=== PATIENT | female | born 1995 | race American Indian/Alaskan Native ===

== ENCOUNTER 2017-02-14 14:39 | Inpatient (IN) | payer MEDICAID ==
[2017-02-14] MEDS ORDERED: ROCEPHIN/NS 1 GM/50 ML 1 GM/50 ML BAG IV ONE (14:57)
[2017-02-14] MEDS ORDERED: LACTATED RINGERS 1,000 ML IV ONE (14:58)
[2017-02-14] MEDS ORDERED: PHENERGAN PR ONE (14:59)
[2017-02-14 15:21] LABS: Basophils % (Auto) 0.1 % (0.0-1.8); Hematocrit 34.3 % (30.3-42.9); Hemoglobin 11.3 gm/dl (10.1-14.3); Mean Corpuscular HGB Conc 33 % (30-34); Mean Corpuscular Hemoglobin 29 pg (28-32); Mean Corpuscular Volume 88 fl (79-97); Platelet Count 202 K/mm3 (140-440); Red Blood Count 3.92 M/mm3 (3.65-5.03); Red Cell Distribution Width 13.3 % (13.2-15.2); White Blood Count 14.8 K/mm3 (4.5-11.0)
[2017-02-14 15:33] LABS: Alanine Aminotransferase 44 units/L (7-56); Albumin 3.4 g/dL (3.9-5); Alkaline Phosphatase 73 units/L (35-129); Anion Gap 19 mmol/L; BUN/Creatinine Ratio 16.66; Blood Urea Nitrogen 10 mg/dL (7-17); Calcium 8.8 mg/dL (8.4-10.2); Carbon Dioxide 25 mmol/L (22-30); Chloride 93.3 mmol/L (98-107); Glucose 85 mg/dL (65-100); Potassium 3.4 mmol/L (3.6-5.0); Sodium 134 mmol/L (137-145); Total Protein 6.9 g/dL (6.3-8.2)
[2017-02-14] MEDS ORDERED: TYLENOL PR ONE (16:48)
[2017-02-14] MEDS ORDERED: D5W 1,000 ML IV ONE (17:18)
[2017-02-14] MEDS ORDERED: TYLENOL PO ONE (17:28)
[2017-02-14] MEDS ORDERED: DEEP SEA NS PRN (17:31)
[2017-02-14] MEDS ORDERED: SUDAFED PO PRN (17:31)
[2017-02-14] MEDS ORDERED: TYLENOL PO PRN (17:31)
[2017-02-14] MEDS ORDERED: AMBIEN PO PRN (17:31)
[2017-02-14] MEDS ORDERED: COLACE PO PRN (17:31)
[2017-02-14] MEDS ORDERED: BENADRYL PO PRN (17:31)
[2017-02-14] MEDS ORDERED: ROBITUSSIN DM PO PRN (17:31)
--- NOTE | 2017-02-14 17:59 | History and Physical Report ---
History of Present Illness History of present illness: EDC Confirmation: 06/21/2017 Gestational Age: 11 4/7 weeks Past History Term Births: 0 Premature Births: 0 Living Children: 0 Para: 0 Aborta: 0 Past Medical History: Reviewed history from 01/03/2016 and no changes required: Negative Past Medical History Past Surgical History: Reviewed history from 01/03/2016 and no changes required: Tonsillectomy Past Medical History Abnormal PAP: negative CHRIS Exposure: negative Infertility: negative Uterine Anomaly: negative Uterine Surgery (not C/S): negative Other Gynecologic Problems: negative Infection History Hx of STD: none HIV Risk Eval: low risk Hepatitis B Risk Eval: low risk Personal hx. of genital herpes: no Partner hx. of genital herpes: no Rash, Viral, or Febrile illness since last LMP? no Varicella/Chicken Pox Status: Previous Disease Genetic History Congenital Heart Defect: Mom: no Dad: no Dilcia Disease: Mom: no Dad: no Thalassemia Mom: no Dad: no Neural Tube Defect Mom: no Dad: no Down's Syndrome Mom: no Dad: no Ibrahima-Sachs Mom: no Dad: no Sickle Cell Disease/Trait Mom: no Dad: no Hemophilia Mom: no Dad: no Muscular Dystrophy Mom: no Dad: no Cystic Fibrosis Mom: no Dad: no Skillman Chorea Mom: no Dad: no Mental Retardation Mom: no Dad: no Fragile X Mom: no Dad: no Other Genetic/Chromosomal Disorder Mom: no Dad: no Child w/other defect Mom: no Dad: no Enviromental Exposures Xray Exposure: no Medication, drug, or alcohol use since LMP: no Chemical/Other Exposure: no Exposure to Cat Liter: no Hx of Parvovirus (Fifth Disease): no Occupational Exposure to Children: none FALSECurrent Allergies (reviewed today): * SEAFOOD (Critical) * PEANUT BUTTER (Critical) * SEASONAL (Critical) Laboratory Results Routine Urinalysis Leukocytes: negative Nitrite: negative Urobilinogen: negative Protein: 1+ Blood: negative Ketone: negative Bilirubin: negative Glucose: Negative Urine HCG: positive Review of Systems General Denies fever, chills, sweats, anorexia, fatigue, weakness, malaise, weight loss and sleep disorder. Denies nausea, vomiting, headache, swelling of legs, abdominal pain, vaginal discharge, vaginal bleeding and contractions. Denies vaginal discharge, incontinence, dysuria, hematuria, urinary frequency, amenorrhea, menorrhagia, abnormal vaginal bleeding, pelvic pain, genital sores, decreased libido, painful periods, painful sex, urinary urgency, hot flashes, vaginal dryness, vaginal itching and vaginal odor. CV Denies chest pains, palpitations, syncope, dyspnea on exertion, orthopnea, PND and peripheral edema. Resp Denies cough, dyspnea at rest, excessive sputum, hemoptysis, wheezing and pleurisy. GI Denies nausea, vomiting, diarrhea, constipation, change in bowel habits, abdominal pain, melena, hematochezia, jaundice, gas/bloating, indigestion/ heartburn, dysphagia and odynophagia. Endo Denies cold intolerance, heat intolerance, polydipsia, polyphagia, polyuria and unusual weight change. Breast Denies left breast lump, right breast lump, nipple discharge, bloody discharge from nipple, breast pain, abnormal mammogram and breast enlargement. MS Denies back pain, joint pain, joint swelling, muscle cramps, muscle weakness, stiffness, arthritis, sciatica, restless legs, leg pain at night and leg pain with exertion. Derm Denies rash, itching, dryness and suspicious lesions. Neuro Denies paralysis, paresthesias, headache, seizures, tremors, vertigo, transient blindness, frequent falls, frequent headaches and difficulty walking. Psych Denies depression, anxiety, irritability and mood swings. Eyes Denies blurring, diplopia, irritation, discharge, vision loss, eye pain and photophobia. ENT Denies earache, ear discharge, tinnitus, decreased hearing, nasal congestion, nosebleeds, sore throat and hoarseness. Allergy Denies urticaria, allergic rash, hay fever and recurrent infections. Heme Denies abnormal bruising, bleeding and enlarged lymph nodes. 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 Ht: sono FHT: 157 Past History - Obstetrical History Expected Date of Delivery: 06/21/17 Actual Gestation: 21 Week(s) 6 Day(s) : 1 Para: 0 Number of Living Children: 0 Medications and Allergies Allergies Allergy/AdvReac Type Severity Reaction Status Date / Time grass pollen Allergy Itching Verified 02/14/17 14:53 pollen extracts Allergy Itching Verified 02/14/17 14:53 shellfish derived Allergy Itching Verified 02/14/17 15:19 weed pollen Allergy Itching Verified 02/14/17 14:53 Home Medications Medication Instructions Recorded Confirmed Last Taken Type Promethazine [Phenergan TAB] 12.5 mg PO Q6HR 02/14/17 02/14/17 02/07/17 21:00 History 1 Promethazine [Phenergan] 25 mg CO QHS 02/14/17 02/14/17 02/07/17 21:00 History 1 Active Meds: Active Medications Acetaminophen (Tylenol) 650 mg PO Q4H PRN PRN Reason: Pain MILD(1-3)/Fever >100.5/GONZALEZ Diphenhydramine HCl (Benadryl) 25 mg PO Q6H PRN PRN Reason: Itching Docusate Sodium (Colace) 100 mg PO Q12H PRN PRN Reason: Constipation Guaifenesin (Robitussin Dm) 10 ml PO Q6H PRN PRN Reason: Cough Dextrose (D5w) 1,000 mls @ 250 mls/hr IV ONCE ONE Stop: 02/14/17 21:17 Folic Acid 1 mg/ Multivitamins /Minerals 10 ml/ Thiamine HCl 100 mg/ Sodium Chloride 1,000 mls @ 125 mls/hr IV .BY DURATION WANG Sodium Chloride (Nacl 0.9% 1000 Ml) 1,000 mls @ 125 mls/hr IV .BY DURATION WANG Dextrose/Lactated Ringer's (D5lr) 1,000 mls @ 500 mls/hr IV DIRECT WANG Stop: 02/15/17 19:59 Multivitamins/Iron/Calcium ( Vitamin) 1 each PO QDAY WANG Nitrofurantoin Macrocrystals (Macrobid) 100 mg PO Q12HR WANG Promethazine HCl (Phenergan) 25 mg CO Q6H WANG Pseudoephedrine HCl (Sudafed) 30 mg PO Q4H PRN PRN Reason: Nasal Congestion Sodium Chloride (Deep Sea) 2 spray NS Q4H PRN PRN Reason: Congestion Zolpidem Tartrate (Ambien) 10 mg PO ONCE PRN PRN Reason: Sleep - Vital Signs Vital signs: Vital Signs Pulse Pulse Ox 105 H 97 02/14/17 15:11 02/14/17 15:11 Temp Pulse Resp BP Pulse Ox 101.9 F H 100 H 107/66 99 02/14/17 15:12 02/14/17 15:27 02/14/17 15:12 02/14/17 15:27 - Physical Exam Breasts: Positive: deferred Cardiovascular: Regular rate, Normal S1, Normal S2 Lungs: Positive: Normal air movement Abdomen: Positive: normal appearance, soft, normal bowel sounds. Negative: distention, tenderness Genitourinary (Female): Positive: normal external genitalia, normal perenium Vulva: both: normal Vagina: Positive: normal moisture. Negative: discharge Cervix: Negative: lesion, discharge Uterus: Positive: normal size, normal contour Adnexa: both: normal Anus/Rectum: Positive: normal perianal skin, heme negative. Negative: rectal mass, hemorrhoids Extremities: Positive: normal Deep Tendon Reflex Grade: Normal +2 - Obstetrical FHR: auscultation normal Uterine Contraction Pattern: Irregular (irritability) Uterine Contraction Intensity: Mild Results Result Diagrams: 02/14/17 14:38 02/14/17 15:01 Abnormal lab results 02/14/17 02/14/17 Range/Units 14:38 15:01 WBC 14.8 H (4.5-11.0) K/mm3 Lymph % (Auto) 5.3 L (13.4-35.0) % [place] % (Auto) 11.7 H (0.0-7.3) % Lymph # 0.8 L (1.2-5.4) K/mm3 [place] # 1.7 H (0.0-0.8) K/mm3 Seg Neutrophils % 82.9 H (40.0-70.0) % Seg Neutrophils # 12.3 H (1.8-7.7) K/mm3 Sodium 134 L (137-145) mmol/L Potassium 3.4 L (3.6-5.0) mmol/L Chloride 93.3 L (98-107) mmol/L Creatinine 0.6 L (0.7-1.2) mg/dL Albumin 3.4 L (3.9-5) g/dL All other labs normal. Laboratory Data-Patient Name: MATIAS HERRERA Test Date Result Blood Type 01/01/2017 A Rh 01/01/2017 Positive Antibody Screen negative Rubella 01/01/2017 immune Serology (RPR) 01/01/2017 NR HBsAg 01/01/2017 Negative Hemoglobin 01/01/2017 11.8 Hematocrit 01/01/2017 37.1 Platelets 01/01/2017 254 [id number] Chlamydia DNA 12/04/2016 Negative GC DNA/Culture 12/04/2016 Urine Culture 01/01/2017 Final report Group B Strep cult PAP HIV 01/01/2017 AFP/Quad Screen 01/01/2017 Glucola Test 3hr GTT (Fasting) 1 hr 2 hr 3 hr [facility]-Patient Name:MATIAS HERRERA Test Date Result Varicella Ab Sickle Cell 01/01/2017 Negative PPD Fibronectin Cystic Fibrosis Parvovirus TSH Free T4 Hepatitis C ALT AST Uric Acid Creatinine 24 hr Urine Protein GUNNAR Assessment and Plan 21yo @ 21 weeks with N&V, cystitis, malaise. Pt admitted for observation, IVFs, dietary consult, antibiotics for UTI. UA and culture sent Orders in EMR. Dr.Meziere frye.
[2017-02-14] MEDS ORDERED: 1: FOLVITE 1 MG, INFUVITE 10 ML, VITAMIN B-1 100 MG in NACL 0.9% 1000 ML 988.8 ML 2: NA IV SCH (18:00)
[2017-02-14] MEDS ORDERED: D5LR 1,000 ML IV SCH (18:00)
[2017-02-14 19:44] LABS: Amylase 53 units/L (27-131); Lipase 34 units/L (13-60)
[2017-02-14] MEDS ORDERED: ZOFRAN IV PRN (20:21)
[2017-02-14 21:24] LABS: Bilirubin,Urine NEG (Negative); Blood,Urine SM (Negative); Ketones,Urine 80 mg/dL (Negative); Leukocyte Esterase,Urine LG (Negative); Mucus,Urine 2+ /HPF; Nitrite,Urine NEG (Negative); Renal Epithelial Cells,Urine 1 /LPF; WBC,Urine > 182.0 /HPF (0.0-6.0)
[2017-02-14] MEDS: REGLAN IV PRN (21:45)
[2017-02-14] MEDS: MACROBID PO SCH (23:35)
[2017-02-15] MEDS: PHENERGAN PR SCH ×3 (00:16→12:08)
--- NOTE | 2017-02-15 08:36 | Admit Criteria Form ---
Admission Criteria Documentation: OBSTETRIC AND GYNECOLOGIC DISEASE GRG Clinical Indications for Admission to Inpatient Care (Place 'X' for any and all applicable criteria): Hospital admission is needed for appropriate care of the patient because of 1 or more of the following (1)(2)(3): [ ]I. Hemodynamic instability, as indicated by 1 or more of the following (1)( 2)(3)(4)(5): [ ]a) Vital signs or other findings not as expected for chronic patient condition or baseline [ ]b) Instability indicated by 1 or more of the following: [ ]i) Hypotension [ ]ii) Symptomatic tachycardia unresponsive to treatment (eg, analgesia, fluids, sedation as indicated) [ ]iii) Inadequate perfusion indicated by 1 or more of the following: [ ]A. Lactic acidosis (greater than 2 mmol/ L) [ ]B. New abnormal capillary refill ( greater than 3 seconds) [ ]C. Reduced urine output [ ]D. New altered mental status [ ]iv) Orthostatic vital sign changes unresponsive to treatment (eg, fluids) [ ]v) Multiple IV fluid boluses required to maintain adequate blood pressure or perfusion [ ]vi) IV inotropic or vasopressor medication required to maintain adequate blood pressure or perfusion [ ]II. Obstetric infection requiring hospitalization indicated by 1 or more of the following(13)(14): [ ]a) Chorioamnionitis [ ]b) Endometritis (except mild endometritis) [ ]c) Pelvic abscess [ ]d) Peritonitis [ ]e) Septic pelvic thrombophlebitis [ ]III. Amniotic fluid or pulmonary embolism(4)(5)(6) [ ]IV. Suspected peritonitis or ectopic requiring monitoring beyond scope of 24 hours or observation care(7)(8) [ ]V. compromise requiring hospitalization indicated by ALL of the following(9)(10): [ ]a) compromise indicated by 1 or more of the following(11): [ ]i) Abnormal heart rate monitoring [ ]ii) Abnormal contraction stress test [ ]iii) Abnormal biophysical profile [ ]iv) Abnormal Doppler flow in vessels (ie, Doppler velocimetry) (12) [ ]b) Persistence of compromise indicators during evaluation and observation monitoring [ ]. Ovarian hyperstimulation syndrome requiring hospitalization[A] indicated by ALL of the following(15): [ ]a) Recent ovarian stimulation with gonadotropins, or evidence on ultrasound of spontaneous emergence of large number of ovarian follicles [ ]b) Evidence of severe ovarian hyperstimulation syndrome indicated by 1 or more of the following: [ ]i) Abdominal pain unresponsive to oral therapy [ ]ii) Acute respiratory distress syndrome [ ]iii) Electrolyte imbalance ( eg, hyponatremia, hyperkalemia) [ ]iv) Elevated liver enzymes [ ]v) Evidence of thromboembolism [ ]vi) Hemoconcentration (hematocrit greater than 45 % (0.45)) [ ]vii) Inability to maintain oral intake adequate to prevent hemoconcentration [ ]viii) Marked hypotension from baseline (eg, SBP 20 mmHg below patients usual pressure) [ ]ix) Oliguria or anuria [ ]x) Ovarian torsion [ ]xi) Pleural or pericardial effusion on x-ray or echocardiogram [ ]xii) Rapid increase in serum creatinine to greater than 1.2 mg/dL (106 micromoles/L) or creatinine clearance less than 50 mL/min/1.73m2 (0.84 mL/ sec/1.73m2) [ ]xiii) Ruptured ovarian cyst with hemorrhage [ ]xiv) Severe abdominal pain or peritoneal signs [ ]xv) Tense ascites that cannot be managed with paracentesis in outpatient setting [ ]VII.Pelvic infection requiring hospitalization indicated by 1 or more of the following (16): [ ]a) Outpatient treatment has failed or is not appropriate (eg, inpatient monitoring required) [ ]b) Pelvic abscess [ ]c) Surgical emergency cannot be excluded (eg, rigid abdomen) [ ]d) Vomiting precluding outpatient and observation care management VIII. loss complications requiring inpatient medical treatment indicated by 1 or more of the following (4)(7)(9): [ ]a) Fever [ ]b) Peritonitis [ ]c) Sepsis [ ]d) Severe abdominal pain [ ]IX. or patient requiring monitoring for severe heart failure, pulmonary disease, or other comorbid condition (eg, peripartum cardiomyopathy) (4)(17) [ ]X. patient with rupture of membranes requiring hospitalization indicated by ANY ONE of the following: [ ]a) Chorioamnionitis, cloudy amniotic fluid, or other evidence of infection [ ]b) compromise or other need for monitoring (11) [ ]c) Gestation longer than 23 weeks and ANY ONE of the following: [ ]i) Abnormal (noncephalic) presentation [ ]ii) Inadequate home environment (eg, home too far from hospital, unable to rapidly return to hospital) [ ]d) Temperature greater than 100.4 degrees F (38 degrees C)( oral) [ ]e) Threatened labor requiring monitoring beyond scope (eg, over 24 hours) of observation Care [ ] XI. complications, including severe lacerations, infections, or retained placenta (19) [ ] XII.Uterine bleeding with high-risk features indicated by ANY ONE of the following (4): [ ]a) Active major hemorrhage (eg, hemorrhage) [ ]b) Coagulopathy with active bleeding [ ]c) Gestational trophoblastic disease (eg, molar ) (20 ) [ ]d) (longer than 23 weeks) and ANY ONE of the following: [ ]i) Pain [ ]ii) Placental abruption, known or suspected [ ]iii) Placenta accrete, known or suspected(21) [ ]iv) Placenta previa, known or suspected [ ]v) Vasa previa [ ]e) Severe anemia [X ]XIII. Obstetric or Gynecologic Disease, condition or symptom for which ANY ONE of the following: [X ]a) Emergency and observation care have failed or are not considered appropriate ( Also use General Criteria: Observation Care Criteria as appropriate) [ ]b) Presence of a General Admission Criteria or Pediatric General Admission Criteria The original [facility] [employer] content created by [facility] has been revised. The portions of the content which have been revised are identified through the use of italic text or in bold, and [facility] has neither reviewed nor approved the modified material.All other unmodified content is copyright [facility]. Please see references footnoted in the original [facility] edition 2016 Admission Criteria Met: Yes
[2017-02-15] MEDS: REGLAN IV PRN (08:57)
--- NOTE | 2017-02-15 09:54 | Progress Note ---
Assessment and Plan INT IV Continue clera liquids ? D/c this pm - Patient Problems (1) 21 weeks gestation of Current Visit: Yes Status: Acute (2) Cystitis during in second trimester, antepartum Current Visit: Yes Status: Acute (3) Nausea and vomiting in prior to 22 weeks gestation Current Visit: Yes Status: Acute Subjective - Subjective Date of service: 02/15/17 Patient reports: movement normal, no new complaints, no vaginal bleeding, no contractions Objective - Vital Signs Vital Signs: Vital Signs - 12hr 02/15/17 02/15/17 02/15/17 05:00 05:41 08:21 Temperature 98.9 F Pulse Rate 109 H 104 H Pulse Rate [ 109 H From Monitor] Respiratory 22 Rate Blood Pressure 107/62 93/51 Blood Pressure 107/62 [Left Arm] 02/15/17 08:23 Temperature 99.6 F Pulse Rate Pulse Rate [ 104 H From Monitor] Respiratory 18 Rate Blood Pressure Blood Pressure 93/51 [Left Arm] - Exam Breasts: deferred Lungs: Clear to auscultation, Normal air movement Abdomen: Present: soft. Absent: distention, tenderness Uterus: Present: normal. Absent: tenderness FHR: auscultation normal Extremities: normal - Labs Labs: Abnormal Labs 02/14/17 02/14/17 02/14/17 14:38 15:01 21:05 WBC 14.8 H Lymph % (Auto) 5.3 L [place] % (Auto) 11.7 H Lymph # 0.8 L [place] # 1.7 H Seg Neutrophils % 82.9 H Seg Neutrophils # 12.3 H Sodium 134 L Potassium 3.4 L Chloride 93.3 L Creatinine 0.6 L Albumin 3.4 L Urine WBC (Auto) > 182.0 H Laboratory Results - last 24 hr 02/14/17 02/14/17 02/14/17 14:38 15:01 15:01 WBC 14.8 H RBC 3.92 Hgb 11.3 Hct 34.3 MCV 88 MCH 29 MCHC 33 RDW 13.3 Plt Count 202 Lymph % (Auto) 5.3 L [place] % (Auto) 11.7 H Eos % (Auto) 0.0 Baso % (Auto) 0.1 Lymph # 0.8 L [place] # 1.7 H Eos # 0.0 Baso # 0.0 Seg Neutrophils % 82.9 H Seg Neutrophils # 12.3 H Sodium 134 L Potassium 3.4 L Chloride 93.3 L Carbon Dioxide 25 Anion Gap 19 BUN 10 Creatinine 0.6 L Estimated GFR > 60 BUN/Creatinine Ratio 16.66 Glucose 85 Calcium 8.8 Total Bilirubin 0.70 AST 26 ALT 44 Alkaline Phosphatase 73 Total Protein 6.9 Albumin 3.4 L Albumin/Globulin Ratio 1.0 Amylase 53 Lipase 34 Urine Color Urine Turbidity Urine pH Ur Specific [place] Urine Protein Urine Glucose (UA) Urine Ketones Urine Blood Urine Nitrite Urine Bilirubin Urine Urobilinogen Ur Leukocyte Esterase Urine WBC (Auto) Urine RBC (Auto) U Epithel Cells (Auto) Ur Renal Epithelial Cell Urine Mucus 02/14/17 21:05 WBC RBC Hgb Hct MCV MCH MCHC RDW Plt Count Lymph % (Auto) [place] % (Auto) Eos % (Auto) Baso % (Auto) Lymph # Stewart # Eos # Baso # Seg Neutrophils % Seg Neutrophils # Sodium Potassium Chloride Carbon Dioxide Anion Gap BUN Creatinine Estimated GFR BUN/Creatinine Ratio Glucose Calcium Total Bilirubin AST ALT Alkaline Phosphatase Total Protein Albumin Albumin/Globulin Ratio Amylase Lipase Urine Color Dina Urine Turbidity Cloudy Urine pH 5.0 Ur Specific [place] 1.025 Urine Protein 100 mg/dl Urine Glucose (UA) Neg Urine Ketones 80 Urine Blood Sm Urine Nitrite Neg Urine Bilirubin Neg Urine Urobilinogen 4.0 Ur Leukocyte Esterase Lg Urine WBC (Auto) > 182.0 H Urine RBC (Auto) 9.0 U Epithel Cells (Auto) 6.0 Ur Renal Epithelial Cell 1 Urine Mucus 2+
[2017-02-15] MEDS ORDERED: PRENATAL VITAMIN PO SCH (10:00)
[2017-02-15] MEDS: MACROBID PO SCH (10:15)
[2017-02-15] MEDS ORDERED: REGLAN PO SCH (10:30)
--- NOTE | 2017-02-15 15:48 | Discharge Summary ---
Providers - Providers Date of Admission: 02/15/17 11:53 Date of discharge: 02/15/17 Attending physician: BERENICE ALVAREZ 02/14/17 17:31 Consult to Dietitian/Nutrition [CONS] Routine Physician Instructions: Reason For Exam: Reason for Consult: Poor oral intake Primary care physician: BERENICE ALVAREZ Hospitalization Reason for admission: observation (febrile, UTI) Hospital course: observation, antibiotics and hydration Condition at discharge: Good Disposition: DISCHARGED TO HOME OR SELFCARE - Discharge Diagnoses (1) 21 weeks gestation of Status: Acute (2) Cystitis during in second trimester, antepartum Status: Acute (3) Nausea and vomiting in prior to 22 weeks gestation Status: Acute Plan - Discharge Medications Prescriptions: Promethazine [Phenergan SUPPOS] 25 mg [place] QHS PRN #15 supp.rect PRN Reason: nausea Metoclopramide [Reglan] 10 mg PO TID #30 tab Nitrofurantoin [place]/M-Cryst [Macrobid CAP] 100 mg PO Q12HR #14 capsule - Provider Discharge Summary Activity: routine Diet: other ([place], BRAT diet) Instructions: routine Additional instructions: [] Smoking cessation referral if applicable(refer to patient education folder for contact #) [] Refer to [facility]'s [facility] Booklet Call your doctor immediately for: * Fever > 100.5 * Heavy vaginal bleeding ( >1 pad per hour) * Severe persistent headache * Shortness of breath * Reddened, hot, painful area to leg or breast * Keep incision clean and dry at all times and follow doctor's instructions regarding bathing/showering - Follow up plan Follow up: BERENICE ALVAREZ MD [Primary Care Provider] - 03/05/17 9:00 am (Please keep next scheduled appointment in office. call for any questions or concerns. Continue taking all of your antibiocs.)
[2017-02-15 17:14] VITALS: BP 97/52
== END 2017-02-15 17:25 | disposition home or self-care (01) | DRG 781 ==
LOC: TRG 14:39 → LD 17:31 → OBSVTOIN 02-15 11:53
PROVIDERS: ADMIT Obstetrics & Gynecology; ATTEND Obstetrics & Gynecology
DX: O23.12 Infections of bladder in pregnancy, second trimester (principal); Z3A.21 21 weeks gestation of pregnancy
CPT/HCPCS: 36415; 80053; 81001; 82150; 83690; 85025; 87086; 96360; 96365; 96366; G0378; J0696; J2405; J2765; J3411; J7030; J7070; J7120; J7121

== ENCOUNTER 2017-11-04 08:38 | Emergency (ER) | payer MEDICAID ==
[2017-11-04 10:25] LABS: Bilirubin,Urine NEG (Negative); Blood,Urine NEG (Negative); Color,Urine Yellow (Yellow); Mucus,Urine FEW /HPF; Nitrite,Urine NEG (Negative); Protein,Urine <15 mg/dL mg/dL (Negative); Urobilinogen,Urine < 2.0 mg/dL (<2.0)
--- NOTE | 2017-11-04 12:30 | Emergency Department Report ---
HPI - General Chief Complaint: Urogenital-Female Time Seen by Provider: 11/04/17 11:25 - HPI HPI: Patient is a 22-year-old female who presents to ED complaining of lower pelvic cramping capacity. Patient states she took a test at home that and was positive. Patient had made some mild nausea but no vomiting Patient states that last superior to sometime in September she can't really recall. Patient denies fevers or chills, vaginal bleeding or spotting. She states she is not sure if she is and wanted to come verify . ED Past Medical Hx - Past Medical History Previous Medical History?: Yes Hx Hypertension: No Hx Congestive Heart Failure: No Hx Diabetes: No Hx Deep Vein Thrombosis: No Hx Renal Disease: No Hx Sickle Cell Disease: No Hx Seizures: No Hx Asthma: No Hx COPD: No Hx HIV: No - Surgical History Past Surgical History?: Yes Additional Surgical History: x 1 - Social History Smoking Status: Never Smoker Substance Use Type: Alcohol, Marijuana - Medications Home Medications: Home Medications Medication Instructions Recorded Confirmed Last Taken Type Promethazine [Phenergan TAB] 12.5 mg PO Q6HR 02/14/17 07/02/17 02/07/17 21:00 History 1 Promethazine [Phenergan] 25 mg [place] QHS 02/14/17 07/02/17 02/07/17 21:00 History 1 Metoclopramide [Reglan] 10 mg PO TID #30 tab 02/15/17 07/02/17 Unknown Rx Promethazine [Phenergan SUPPOS] 25 mg [place] QHS PRN #15 supp.rect 02/15/1707/01/17 10:00 Rx Ferrous Sulfate 325 mg PO DAILY 07/02/17 07/02/17 06/22/17 15:00 History Ibuprofen [Motrin 800 MG tab] 800 mg PO TID PRN #30 tablet 07/02/17 Unknown Rx Pnv No.95/Ferrous Fum/Folic AC 1 each PO DAILY 07/02/17 07/02/17 Unknown History [ Vitamin Tablet] oxyCODONE /ACETAMINOPHEN [Percocet 1 - 2 tab PO Q4HR PRN #30 tablet 07/02/17 Unknown Rx 5/325 mg] Nitrofurantoin Jefferson/M-Cryst 100 mg PO Q12HR #14 capsule 11/04/17 Unknown Rx [Macrobid CAP] ED Review of Systems ROS: Stated complaint: PELVIC PAIN Other details as noted in HPI Constitutional: denies: chills, fever Eyes: denies: eye pain, eye discharge, vision change ENT: denies: ear pain, throat pain Respiratory: denies: cough, shortness of breath, wheezing Cardiovascular: denies: chest pain, palpitations Endocrine: no symptoms reported Gastrointestinal: denies: abdominal pain, nausea, diarrhea Genitourinary: denies: urgency, dysuria, discharge Musculoskeletal: denies: back pain, joint swelling, arthralgia Skin: denies: rash, lesions Neurological: denies: headache, weakness, paresthesias Psychiatric: denies: anxiety, depression Hematological/Lymphatic: denies: easy bleeding, easy bruising Physical Exam - Physical Exam Vital Signs: Vital Signs 11/04/17 08:54 Temperature 99.1 F Pulse Rate 78 Respiratory 18 Rate Blood Pressure 121/62 O2 Sat by Pulse 100 Oximetry Physical Exam: GENERAL: Alert and oriented x3, no apparent distress, Normal Gait, atraumatic. HEAD: Head is normocephalic and a-traumatic. LUNGS: Symetrical with respiration, No wheezing, no rales or crackles, CTAB. HEART: S1, S2 present, regular rate and rhythm without murmur, no rubs, no gallops. Non tender to palpation ABDOMEN: No organomegaly was noted,Positive bowel sounds, soft, and non- distended. . Nontender to palpation on all Quadrants, NO CVA tenderness. BACK: Full range of motion, no spinal tenderness, nontender to palpation. SKIN: Warm and dry, No lesions, No ulceration or induration present. ED Course Vital Signs 11/04/17 08:54 Temperature 99.1 F Pulse Rate 78 Respiratory 18 Rate Blood Pressure 121/62 O2 Sat by Pulse 100 Oximetry ED Medical Decision Making - Medical Decision Making 22-year-old female present with a cystitis and concerns ED course: Urinalysis, Quant test ordered. Urinalysis positive for slight trace leuks. test is negative. I discussed with patient that her hormone is negative. I discussed the patient to follow-up with the PHYSICIAN SPECIALIST doctor for further evaluation. Discussed the patient that sometimes menstrual Cycles can be a little bit late. I discussed the patient and I will treat her for mild cystitis otherwise follow -up with primary care physician and or obgyn Vital signs are normal. Patient is in no acute distress. I discussed the patient to abstain from sex for the next 7-10 days. Critical care attestation.: If time is entered above; I have spent that time in minutes in the direct care of this critically ill patient, excluding procedure time. ED Disposition Clinical Impression: UTI (urinary tract infection) Qualifiers: Urinary tract infection type: acute cystitis Hematuria presence: without hematuria Qualified Code(s): N30.00 - Acute cystitis without hematuria Disposition: TO HOME OR SELFCARE Is pt being admited?: No Does the pt Need Aspirin: No Condition: Stable Instructions: Urinary Tract Infection in Women (ED), Dysuria (ED) Additional Instructions: Make sure to follow up with the primary care physician as discussed. Take all your medications as you've been prescribed. If you have any worsening symptoms or develop new symptoms please return to ED immediately. Prescriptions: Nitrofurantoin [place]/M-Cryst [Macrobid CAP] 100 mg PO Q12HR #14 capsule Referrals: CARIN PINA MD [Primary Care Provider] - 3-5 Days TITO LUIS MD [Referring] - 3-5 Days Forms: Accompanied Note, Work/School Release Form(ED) Time of Disposition: 12:34
[2017-11-04 12:51] VITALS: BP 117/74
== END 2017-11-04 13:05 | disposition home or self-care (01) ==
LOC: ED 08:38
DX: N30.00 Acute cystitis without hematuria (principal); F12.10 Cannabis abuse, uncomplicated
CPT/HCPCS: 36415; 81001; 84702

== ENCOUNTER 2022-03-27 10:44 | Inpatient (IN) | payer MEDICAID ==
[2022-03-27] MEDS ORDERED: D5W/LACTATED RINGERS 1,000 ML IV SCH (11:00)
--- NOTE | 2022-03-27 11:00 | History and Physical Report ---
History of Present Illness Date of examination: 03/27/22 Chief complaint: excessive n/v, 25lb wt loss, 10wks History of present illness: Prepregnancy weight 137 Weight today in office 112 Ketones (80) +++ EDC Calculations by LMP: 10/18/2022 Past History : 2 Term Births: 1 Premature Births: 0 Living Children: 1 Para: 1 Mult. Births: 0 Prev : 1 Aborta: 0 Elect. Ab: 0 Spont. Ab: 0 Ectopics: 0 # 1 Delivery date: 07/02/2017 Weeks Gestation: 41 Delivery type: Anesthesia type: epidural Delivery location: [facility] Sex: female weight: 6.88 Past Medical History: Reviewed history from 01/03/2016 and no changes required: Negative Past Medical History Past Surgical History: Reviewed history from 07/02/2017 and no changes required: Tonsillectomy (07/02/2017) Risk Factors: Smoked Tobacco Use: Never smoker Smokeless Tobacco Use: Never HIV High Risk Behavior: no Caffeine Use: 0 drinks per day Exercise: no Seatbelt Use: 100 % Alcohol Use: no Drug Use: no Past Medical History 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 of genital herpes: no Partner hx. of genital herpes: no Rash, Viral, or Febrile illness since last LMP? no Varicella/Chicken Pox Status: Immunized Genetic History Congenital Heart Defect: Mom: no Dad: no Dilcia Disease: Mom: no Dad: no Thalassemia Mom: no Dad: no Neural Tube Defect Mom: no Dad: no Down's Syndrome Mom: no Dad: no Ibrahima-Sachs Mom: no Dad: no Sickle Cell Disease/Trait Mom: no Dad: no Hemophilia Mom: no Dad: no Muscular Dystrophy Mom: no Dad: no Cystic Fibrosis Mom: no Dad: no [place] Chorea Mom: no Dad: no Mental Retardation Mom: no Dad: no Fragile X Mom: no Dad: no Other Genetic/Chromosomal Disorder Mom: no Dad: no Child w/other defect Mom: no Dad: no Enviromental Exposures Xray Exposure: no Medication, drug, or alcohol use since LMP: no Chemical/Other Exposure: no Exposure to Cat Liter: no Hx of Parvovirus (Fifth Disease): no Occupational Exposure to Children: none Active Medications (reviewed today): ondansetron HCl 4 mg tablet (ondansetron hcl) Current Allergies (reviewed today): * SEAFOOD (Critical) * PEANUT BUTTER (Critical) * SEASONAL (Critical) Past History Past Medical History: other (see HPI) Past Surgical History: other (see HPI) 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) Family/Genetic History: other (see HPI) Social history: no significant social history - Obstetrical History Expected Date of Delivery: 10/18/22 Actual Gestation: 10 Week(s) 5 Day(s) : 2 Para: 1 Hx # Term Pregnancies: 1 Number of Pregnancies: 0 Spontaneous Abortions: 0 Induced : 0 Number of Living Children: 1 Medications and Allergies Allergies Allergy/AdvReac Type Severity Reaction Status Date / Time grass pollen Allergy Itching Verified 02/14/17 14:53 pollen extracts Allergy Itching Verified 02/14/17 14:53 shellfish derived Allergy Itching Verified 02/14/17 15:19 weed pollen Allergy Itching Verified 02/14/17 14:53 Review of Systems All systems: negative - Physical Exam Breasts: Positive: normal Cardiovascular: Regular rate Lungs: Positive: Clear to auscultation, Normal air movement Abdomen: Positive: normal appearance, soft Genitourinary (Female): Positive: normal external genitalia Extremities: Positive: normal Deep Tendon Reflex Grade: Normal +2 - Obstetrical FHR: auscultation normal (by office u/s today) Results All other labs normal. Assessment and Plan 26y/o presented to office today to establish . EDC set by LMP. Pt c/o excessive nausea and inability to eat anything. She has been seen in the ED many times for IVF hydration and has tried diclegis and zofran without any success. Start HG pathway. pt aware she may need to be in hospital care for several days. All questions addressed. - Patient Problems (1) 10 weeks gestation of Current Visit: Yes Status: Acute (2) Hyperemesis gravidarum before end of 22 week gestation with dehydration Current Visit: Yes Status: Acute (3) Weight loss, non-intentional Current Visit: Yes Status: Acute (4) Ptyalism Current Visit: Yes Status: Acute
[2022-03-27] MEDS ORDERED: ONDANSETRON 4 MG/2 ML INJ IV PRN (11:30)
[2022-03-27] MEDS: METOCLOPRAMIDE 10 MG/2 ML INJ IV SCH ×2 (13:18→22:02)
[2022-03-27] MEDS: D5W/LACTATED RINGERS 1,000 ML IV SCH ×2 (13:24→15:28)
[2022-03-27 15:24] LABS: Blood Urea Nitrogen 10 mg/dL (7-17); Calcium 9.2 mg/dL (8.4-10.2); Hemolysis Index 2
[2022-03-27] MEDS: PROMETHAZINE 25 MG RECT SUPP PR SCH ×2 (15:25→22:02)
[2022-03-27 15:31] LABS: BUN/Creatinine Ratio 17
--- NOTE | 2022-03-27 16:13 | Event Note ---
Date: 03/27/22 Lab results reviewed with Dr. Jones, Dr. Blair Called for consult. he was made aware of lab results and states he will come see patient.
--- NOTE | 2022-03-27 16:25 | Consultation ---
History of Present Illness - Reason for Consult Consult date: 03/27/22 elevated glucose level, low tsh level Requesting physician: INDIA JONES - History of Present Illness 26 YO Female at 10 weeks Gestation with Hyperemesis Gravidarium. Consult placed by Dr. Jones for elevated glucose level and low TSH level. Patient seen and evaluated in her room. Patient acknowledges polydipsia but denies polyuria, polyphagia. Patient denies" history of diabetes. Patient has not fever, chills, chest pain, palpitation, productive cough, skin rash or recent contact, known exposure to COVID-19. No reported nursing events. Patient resting comfortably and in no acute distress. Past History Past Medical History: other (See HPI) Past Surgical History: No surgical history, Other (Reviewed) Social history: no significant social history Family history: no significant family history, other (Reviewed) Medications and Allergies Allergies Allergy/AdvReac Type Severity Reaction Status Date / Time grass pollen Allergy Itching Verified 02/14/17 14:53 pollen extracts Allergy Itching Verified 02/14/17 14:53 shellfish derived Allergy Itching Verified 02/14/17 15:19 weed pollen Allergy Itching Verified 02/14/17 14:53 Active Meds: Active Medications Potassium Chloride (Kcl 10meq/100ml) 10 meq in 100 mls @ 100 mls/hr IV Q1H COUNTS INCLUDE 234 BEDS AT THE [facility] Stop: 03/27/22 20:29 Sodium Chloride (Nacl 0.9% 1000 Ml) 1,000 mls @ 125 mls/hr IV DIRECT WANG Lactated Ringer's (Lactated Ringers 1000 Ml Iv Soln) 1,000 ml IV DIRECT WANG Metoclopramide HCl (Metoclopramide 10 Mg/2 Ml Inj) 10 mg IV Q6H WANG Last Admin: 03/27/22 13:18 Dose: 10 mg Multivitamins/Iron/Calcium ( [id number]-[id number] Fumarate-Folic Acid Vit Tab) 1 each PO QDAY WANG Ondansetron HCl (Ondansetron 4 Mg/2 Ml Inj) 4 mg IV Q6H PRN PRN Reason: N/V unrelieved by Chin Last Admin: 03/27/22 13:18 Dose: 4 mg Promethazine HCl (Promethazine 25 Mg Rect Supp) 25 mg WI Q6H WANG Last Admin: 06/21/22 15:25 Dose: Not Given Review of Systems Constitutional: no weight loss, no weight gain, no fever, no chills Ears, nose, mouth and throat: no ear pain, no tinnitis Breasts: no change in shape, no swelling Cardiovascular: no chest pain, no orthopnea, no edema, no lightheadedness Respiratory: no cough, no cough with sputum, no hemoptysis, no shortness of breath Gastrointestinal: nausea, no abdominal pain Genitourinary Female: no pelvic pain, no flank pain, no dysuria Rectal: no pain, no incontinence, no bleeding Musculoskeletal: no neck stiffness, no neck pain, no low back pain, no leg numbness/tingling Integumentary: no rash, no sores, no wounds, no jaundice Neurological: no head injury, no paralysis, no parathesias, no numbness, no seizures Psychiatric: no anxiety, no memory loss, no insomnia, no change in appetite, no suicidal ideation Endocrine: excessive thirst, polydipsia, no cold intolerance, no heat intolerance, no polyphagia, no nocturia, no low blood sugars, no recent glucocorticoid use Hematologic/Lymphatic: no easy bruising, no easy bleeding Allergic/Immunologic: no urticaria, no allergic rhinitis, no wheezing Exam - Constitutional Vitals: Temp Pulse Resp BP Pulse Ox 98 03/27/22 13:30 General appearance: Present: no acute distress, well-nourished - EENT Eyes: Present: PERRL ENT: hearing intact, clear oral mucosa - Neck Neck: Present: supple, normal ROM - Respiratory Respiratory effort: normal Respiratory: bilateral: CTA - Cardiovascular Heart Sounds: Present: S1 & S2. Absent: rub, click - Extremities Extremities: pulses symmetrical, No edema Peripheral Pulses: within normal limits - Abdominal General gastrointestinal: Present: soft, non-tender, non-distended, normal bowel sounds Female genitourinary: Present: normal - Integumentary Integumentary: Present: clear, warm, dry - Musculoskeletal Musculoskeletal: gait normal, strength equal bilaterally - Psychiatric Psychiatric: appropriate mood/affect, intact judgment & insight - Neurologic Neurologic: CNII-XII intact, moves all extremities Results - Labs CBC & Chem 7: 03/27/22 Unknown Labs: Abnormal lab results 03/27/22 03/27/22 Range/Units 10:56 Unknown Sodium 130 L (137-145) mmol/L Potassium 2.4 L* (3.6-5.0) mmol/L Chloride 86.8 L (98-107) mmol/L Glucose 345 H (65-100) mg/dL TSH < 0.005 L (0.270-4.200) mlU/mL Assessment and Plan - Patient Problems (1) Elevated glucose Current Visit: Yes Status: Acute Plan to address problem: Hemoglobin A1c, low-dose sliding scale insulin protocol, consistent carbohydrate diet, supportive care. Patient may have developed gestational diabetes. We will continue to monitor. Patient counseled and informed that if she has gestational diabetes it is likely to resolve . Continue to monitor. Insulin protocol, hypoglycemia protocol, Accu-Chek. (2) Low TSH level Current Visit: Yes Status: Acute Plan to address problem: Thyroid panel, free T4 level. Awaiting test results.
[2022-03-27] MEDS ORDERED: DEXTROSE 50% IN WATER (25GM) 50 ML SYRINGE IV PRN (16:30)
[2022-03-27] MEDS ORDERED: POTASSIUM CHLORIDE 10 MEQ 10 MEQ/100 ML BAG IV SCH (16:30)
[2022-03-27] MEDS: SODIUM CHLORIDE 0.9% 1000 ML 1,000 ML IV SCH (16:37)
[2022-03-27] MEDS ORDERED: LACTATED RINGERS 1000 ML IV SOLN IV SCH (17:00)
[2022-03-27 18:32] LABS: Bilirubin,Urine SM (Negative); Blood,Urine NEG (Negative); Color,Urine Amber (Yellow); Mucus,Urine 3+ /HPF
[2022-03-27] MEDS: INSULIN LISPRO 100 UNIT/ML SUB-Q SCH (18:39)
[2022-03-27 18:43] LABS: Ictotest,Urine Negative (Negative)
[2022-03-27] MEDS ORDERED: POTASSIUM CHLORIDE ER 20 MEQ TAB PO SCH (21:00)
[2022-03-27 22:42] LABS: Free T4 (Free Thyroxine) > 7.77 ng/dL (0.76-1.46)
[2022-03-28] MEDS: INSULIN LISPRO 100 UNIT/ML SUB-Q SCH ×2 (02:39→14:49)
[2022-03-28] MEDS: PROMETHAZINE 25 MG RECT SUPP PR SCH ×2 (03:13→09:06)
[2022-03-28] MEDS ORDERED: NACL 0.9%/KCL 40 MEQ 40 MEQ/1,000 ML BAG IV SCH (04:17)
[2022-03-28] MEDS ORDERED: POTASSIUM CHLORIDE IV ONE (04:30)
[2022-03-28] MEDS ORDERED: SODIUM CHLORIDE 0.9% IV ONE (04:30)
[2022-03-28] MEDS: SODIUM CHLORIDE 0.9% 1000 ML 1,000 ML IV SCH (05:04)
[2022-03-28] MEDS: METOCLOPRAMIDE 10 MG/2 ML INJ IV SCH ×2 (05:31→11:03)
--- NOTE | 2022-03-28 07:22 | Progress Note ---
Assessment and Plan patient resting with KCL added to IVF infusing, pt tolerating well. She reports last emesis around midnight. She is tolerating sips of clears. continue hypermesis pathway. Appreciate hospitalist assistance with hyperthyroid and hyperglycemia. - Patient Problems (1) 10 weeks gestation of Current Visit: Yes Status: Acute (2) Hyperemesis gravidarum before end of 22 week gestation with dehydration Current Visit: Yes Status: Acute (3) Weight loss, non-intentional Current Visit: Yes Status: Acute (4) Ptyalism Current Visit: Yes Status: Acute Subjective - Subjective Date of service: 03/28/22 Principal diagnosis: IUP 10w6d: hyperemesis, hypokalemia, hyperthyroid Interval history: Prepregnancy weight 137 Weight today in office 112 Ketones (80) +++ EDC Calculations by LMP: 10/18/2022 Past History : 2 Term Births: 1 Premature Births: 0 Living Children: 1 Para: 1 Mult. Births: 0 Prev : 1 Aborta: 0 Elect. Ab: 0 Spont. Ab: 0 Ectopics: 0 # 1 Delivery date: 07/02/2017 Weeks Gestation: 41 Delivery type: Anesthesia type: epidural Delivery location: [facility] Sex: female weight: 6.88 Past Medical History: Reviewed history from 01/03/2016 and no changes required: Negative Past Medical History Past Surgical History: Reviewed history from 07/02/2017 and no changes required: Tonsillectomy (07/02/2017) Risk Factors: Smoked Tobacco Use: Never smoker Smokeless Tobacco Use: Never HIV High Risk Behavior: no Caffeine Use: 0 drinks per day Exercise: no Seatbelt Use: 100 % Alcohol Use: no Drug Use: no Past Medical History 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 of genital herpes: no Partner hx. of genital herpes: no Rash, Viral, or Febrile illness since last LMP? no Varicella/Chicken Pox Status: Immunized Genetic History Congenital Heart Defect: Mom: no Dad: no Dilcia Disease: Mom: no Dad: no Thalassemia Mom: no Dad: no Neural Tube Defect Mom: no Dad: no Down's Syndrome Mom: no Dad: no Ibrahima-Sachs Mom: no Dad: no Sickle Cell Disease/Trait Mom: no Dad: no Hemophilia Mom: no Dad: no Muscular Dystrophy Mom: no Dad: no Cystic Fibrosis Mom: no Dad: no [place] Chorea Mom: no Dad: no Mental Retardation Mom: no Dad: no Fragile X Mom: no Dad: no Other Genetic/Chromosomal Disorder Mom: no Dad: no Child w/other defect Mom: no Dad: no Enviromental Exposures Xray Exposure: no Medication, drug, or alcohol use since LMP: no Chemical/Other Exposure: no Exposure to Cat Liter: no Hx of Parvovirus (Fifth Disease): no Occupational Exposure to Children: none Active Medications (reviewed today): ondansetron HCl 4 mg tablet (ondansetron hcl) Current Allergies (reviewed today): * SEAFOOD (Critical) * PEANUT BUTTER (Critical) * SEASONAL (Critical) Objective - Vital Signs Vital Signs: Vital Signs - 12hr 03/27/22 03/28/22 19:59 00:40 Temperature 98.7 F 98.7 F Pulse Rate 95 H 103 H Respiratory 18 18 Rate Blood Pressure 121/78 131/95 O2 Sat by Pulse 100 97 Oximetry - Exam Cardiovascular: Regular rate Lungs: Clear to auscultation, Normal air movement Abdomen: Present: normal appearance, soft - Labs Labs: Abnormal Labs 03/27/22 03/27/22 03/27/22 10:56 19:00 19:00 Sodium Potassium Chloride Glucose TSH < 0.005 L 0.010 L Free T4 > 7.77 H > 7.77 H 03/27/22 Unknown Sodium 130 L Potassium 2.4 L* Chloride 86.8 L Glucose 345 H TSH Free T4 Laboratory Results - last 24 hr 03/27/22 03/27/22 03/27/22 10:56 12:00 18:25 Sodium Potassium Chloride Carbon Dioxide Anion Gap BUN Creatinine Estimated GFR BUN/Creatinine Ratio Glucose POC Glucose 101 Hemoglobin A1c Calcium TSH < 0.005 L Free T4 Urine Color Urine Turbidity Urine pH Ur Specific [place] Urine Protein Urine Glucose (UA) Urine Ketones Urine Blood Urine Nitrite Urine Bilirubin Urine Ictotest Urine Urobilinogen Ur Leukocyte Esterase Urine WBC (Auto) Urine RBC (Auto) U Epithel Cells (Auto) Urine Mucus SARS-CoV-2 (PCR) Negative 03/27/22 03/27/22 03/27/22 19:00 19:00 19:00 Sodium Potassium Chloride Carbon Dioxide Anion Gap BUN Creatinine Estimated GFR BUN/Creatinine Ratio Glucose POC Glucose Hemoglobin A1c 5.4 Calcium TSH 0.010 L Free T4 > 7.77 H > 7.77 H Urine Color Urine Turbidity Urine pH Ur Specific [place] Urine Protein Urine Glucose (UA) Urine Ketones Urine Blood Urine Nitrite Urine Bilirubin Urine Ictotest Urine Urobilinogen Ur Leukocyte Esterase Urine WBC (Auto) Urine RBC (Auto) U Epithel Cells (Auto) Urine Mucus SARS-CoV-2 (PCR) 03/27/22 03/27/22 03/27/22 Unknown Unknown Unknown Sodium 130 L Potassium 2.4 L* Chloride 86.8 L Carbon Dioxide 28 Anion Gap 18 BUN 10 Creatinine 0.6 Estimated GFR > 60 BUN/Creatinine Ratio 17 Glucose 345 H POC Glucose Hemoglobin A1c Calcium 9.2 TSH Free T4 Urine Color [place] Urine Turbidity Clear Urine pH 7.0 Ur Specific [place] 1.028 Urine Protein 30 mg/dl Urine Glucose (UA) 150 Urine Ketones 20 20 Urine Blood Neg Urine Nitrite Neg Urine Bilirubin Sm Urine Ictotest Negative Urine Urobilinogen 4.0 Ur Leukocyte Esterase Neg Urine WBC (Auto) 4.0 Urine RBC (Auto) 3.0 U Epithel Cells (Auto) 8.0 Urine Mucus 3+ SARS-CoV-2 (PCR) 03/28/22 03/28/22 03/28/22 02:39 06:18 Unknown Sodium Potassium Chloride Carbon Dioxide Anion Gap BUN Creatinine Estimated GFR BUN/Creatinine Ratio Glucose POC Glucose 90 85 Hemoglobin A1c Calcium TSH Free T4 Urine Color Urine Turbidity Urine pH Ur Specific [place] Urine Protein Urine Glucose (UA) Urine Ketones 20 Urine Blood Urine Nitrite Urine Bilirubin Urine Ictotest Urine Urobilinogen Ur Leukocyte Esterase Urine WBC (Auto) Urine RBC (Auto) U Epithel Cells (Auto) Urine Mucus SARS-CoV-2 (PCR)
[2022-03-28] MEDS ORDERED: PRENATAL VIT27-FE FUMARATE-FOLIC ACID VIT TAB PO SCH (10:00)
[2022-03-28 13:28] VITALS: BP 126/87
== END 2022-03-28 16:51 | disposition left against medical advice (07) | DRG 781 ==
LOC: 3A 10:44 → UNDOADMIN 10:44 → OB 11:08
PROVIDERS: ADMIT Student in an Organized Health Care Education/Training Program; ATTEND Student in an Organized Health Care Education/Training Program
DX: O21.1 Hyperemesis gravidarum with metabolic disturbance (principal); Z20.822 Contact with and (suspected) exposure to COVID-19; K11.7 Disturbances of salivary secretion; O99.611 Diseases of the digestive system complicating pregnancy, first trimester; Z3A.10 10 weeks gestation of pregnancy; Z91.010 Allergy to peanuts; Z91.013 Allergy to seafood; Z88.8 Allergy status to other drugs, medicaments and biological substances; Z53.29 Procedure and treatment not carried out because of patient's decision for other reasons
CPT/HCPCS: 80048; 81001; 82010; 82962; 83036; 84439; 84443; G0378; J7060; J2405; J2765; J3480; J7030; J7040; J7120; J7121; U0003